=== PATIENT | male | born 1955 | race Caucasian/White ===

== ENCOUNTER → 2017-06-16 | Outpatient (CLI) | payer MEDICARE, MEDICAID ==
[2017-06-16 08:43] LABS: ALANINE AMINOTRANSFERASE 82 U/L (21-72); ASPARTATE AMINO TRANSFERASE 46 U/L (17-59); CHOLESTEROL 220.05 mg/dL (0-200); TRIGLYCERIDES 301 mg/dL (<150)
[2017-06-16 08:54] LABS: DIRECT LDL 127 mg/dL (<100)
[2017-06-16 08:59] LABS: VLDL CHOLESTEROL 60.2 mg/dL (10-31)
== END ==
LOC: OD 07:12
PROVIDERS: ATTEND Family Medicine Geriatric Medicine
DX: E78.5 Hyperlipidemia, unspecified (principal); R79.89 Other specified abnormal findings of blood chemistry; Z79.899 Other long term (current) drug therapy
CPT/HCPCS: 36415; 80061; 84450; 84460